=== PATIENT | male | born 1995 | race Caucasian/White ===

== ENCOUNTER 2025-04-04 19:30 | Inpatient (IN) | payer OTHER ==
[~2025-04-04] VITALS: Ht 175.3 cm; Wt 57.7 kg
[2025-04-04 22:05] LABS: PLATELET COUNT (AUTO) 229 K/uL (150-450); RED BLOOD CELL COUNT(AUTO) 4.27 MIL/uL (4.50-5.90); RED CELL DISTRIBUTION WIDTH 14.8 % (11.5-14.5); WHITE BLOOD COUNT (AUTO) 10.8 K/uL (4.5-11.0)
[2025-04-04 22:10] LABS: CALCIUM, TOTAL 9.4 mg/dL (8.8-10.5); CREATININE 0.78 mg/dL (0.60-1.30); GLOMERULAR FILTR. RATE CALC > 60 mL/min (>60); GLUCOSE,RANDOM 75 mg/dL (70-110); SODIUM SERUM 140 mmol/L (136-145); UREA NITROGEN, BLOOD 17 mg/dL (7-18)
[2025-04-04 23:30] LABS: COVID AG,FIA SOURCE NASAL SWAB
[2025-04-04 23:33] LABS: SARS-COV2 (COVID) ANTIGEN,FIA Negative (Negative)
[2025-04-05 04:00] VITALS: O2SAT 100
[2025-04-05] MEDS ORDERED: BENZOCAINE/MENTHOL [CEPACOL] LOZENGE PO PRN (07:15)
[2025-04-05] MEDS ORDERED: ALBUTEROL SULFATE HFA 90 MCG/PUFF 8 GM INHALER IH PRN (07:15)
[2025-04-05] MEDS ORDERED: ONDANSETRON 4 MG TABLET PO PRN (07:15)
[2025-04-05] MEDS ORDERED: DOCUSATE SODIUM 100 MG CAPSULE PO PRN (07:15)
[2025-04-05] MEDS ORDERED: MAG HYDROX/ALUMINUM HYD/SIMETH ES 30 ML SUSPENSION UDCUP PO PRN (07:15)
[2025-04-05] MEDS ORDERED: IBUPROFEN 600 MG TABLET PO PRN (07:15)
[2025-04-05] MEDS ORDERED: PETROLATUM,WHITE 28 GM JELLY TP PRN (07:15)
[2025-04-05] MEDS ORDERED: LOPERAMIDE HCL 2 MG CAPSULE PO PRN (07:15)
[2025-04-05] MEDS ORDERED: MAGNESIUM HYDROXIDE SUSPENSION 30 ML UDCUP PO PRN (07:15)
[2025-04-05] MEDS ORDERED: OMEPRAZOLE 20 MG CAPSULE PO PRN (07:15)
[2025-04-05] MEDS ORDERED: ACETAMINOPHEN 325 MG TABLET PO PRN (07:15)
[2025-04-05] MEDS ORDERED: BACITRACIN 28 GM OINTMENT TP PRN (07:15)
[2025-04-05 11:38] VITALS: BP 109/82; PULSE 89; RESP 15; TEMP 98.1; O2SAT 100
[2025-04-05] MEDS: GABAPENTIN 300 MG CAPSULE PO SCH (16:17)
[2025-04-05 20:28] VITALS: BP 99/50; PULSE 83; RESP 16; TEMP 97.2; O2SAT 98
[2025-04-06 08:18] VITALS: BP 116/74; PULSE 95; RESP 18; TEMP 97.5; O2SAT 100
[2025-04-06 08:33] LABS: PLATELET COUNT (AUTO) 261 K/uL (150-450); RED BLOOD CELL COUNT(AUTO) 4.01 MIL/uL (4.50-5.90); RED CELL DISTRIBUTION WIDTH 14.1 % (11.5-14.5); WHITE BLOOD COUNT (AUTO) 5.6 K/uL (4.5-11.0)
[2025-04-06 09:08] LABS: ALCOHOL, URINE DRUG SCREEN NEGATIVE (NEGATIVE); AMPHET/METH SCREEN,URINE NEGATIVE (NEGATIVE); BARBITURATE SCREEN, URINE NEGATIVE (NEGATIVE); CANNABINOID SCREEN,URINE POSITIVE (NEGATIVE); COCAINE SCREEN,URINE NEGATIVE (NEGATIVE); METHADONE SCREEN, URINE NEGATIVE (NEGATIVE)
[2025-04-06 09:17] LABS: ASPARTATE AMINOTRANSFERASE 34 U/L (15-37); CALCIUM, TOTAL 9.0 mg/dL (8.8-10.5); CHOL/HDL RATIO 2.5 (4.2-7.3); CREATININE 0.56 mg/dL (0.60-1.30); GLOMERULAR FILTR. RATE CALC > 60 mL/min (>60); GLUCOSE,RANDOM 99 mg/dL (70-110); LDL CHOL (CALC.) 114 mg/dL (0-130); SODIUM SERUM 139 mmol/L (136-145); TOTAL PROTEIN, SERUM 7.3 g/dL (6.4-8.2); UREA NITROGEN, BLOOD 10 mg/dL (7-18)
[2025-04-06 09:24] LABS: APPEARANCE,URINE CLEAR (CLEAR); GLUCOSE, URINE (UA) TRACE mg/dL (NEGATIVE); LEUKOCYTE ESTERASE ,URINE NEGATIVE (NEGATIVE); NITRATE,URINE NEGATIVE (NEGATIVE); OCCULT BLOOD,URINE NEGATIVE (NEGATIVE); PH,URINE DRUG SCREEN 6.0 (5.0-8.0); SPECIFIC GRAVITIY, URINE 1.036 (1.003-1.030)
[2025-04-06] MEDS: ZOLPIDEM TARTRATE 10 MG TABLET PO PRN (20:18)
[2025-04-06 20:26] VITALS: BP 108/62; PULSE 82; RESP 17; TEMP 97.8; O2SAT 99
[2025-04-07 06:07] LABS: HEPATITIS C AB (EIA) Non Reactive (Non Reactive)
[2025-04-07] MEDS: MULTIVITAMINS WITH MINERALS, THERAPEUTIC TABLET PO SCH (08:04)
[2025-04-07 08:05] VITALS: BP 127/84; PULSE 76; RESP 18; TEMP 97.9; O2SAT 95
[2025-04-07 20:18] VITALS: BP 124/89; PULSE 66; RESP 18; TEMP 98.4; O2SAT 99
[2025-04-08 08:12] VITALS: RESP 18
[2025-04-08 20:17] VITALS: BP 114/72; PULSE 84; RESP 18; TEMP 98
[2025-04-09 08:11] VITALS: BP 105/68; PULSE 94; RESP 16; TEMP 98.2; O2SAT 100
[2025-04-09 08:12] VITALS: BP 105/68; PULSE 94; RESP 16; TEMP 98.2; O2SAT 100
[2025-04-09 20:44] VITALS: BP 112/71; PULSE 82; RESP 17; TEMP 98.7; O2SAT 100
[2025-04-10 08:10] VITALS: BP 109/75; PULSE 93; RESP 16; TEMP 97.9; O2SAT 100
[2025-04-10] MEDS: HYDROCORTISONE 1% 30 GM OINTMENT TP SCH (09:00)
[2025-04-10] MEDS ORDERED: RISP-32 PO (11:05)
[2025-04-10] MEDS ORDERED: GABA-1181 PO (11:06)
== END 2025-04-10 13:30 | disposition home or self-care (01) | DRG 885 ==
LOC: EMS 19:30 → B3A 04-05 02:18
PROVIDERS: ADMIT Psychiatry & Neurology Psychiatry; ATTEND Psychiatry & Neurology Psychiatry
DX: F20.9 Schizophrenia, unspecified (principal); Z59.00 Homelessness unspecified; G40.909 Epilepsy, unspecified, not intractable, without status epilepticus; F41.9 Anxiety disorder, unspecified; G47.00 Insomnia, unspecified; S40.022A Contusion of left upper arm, initial encounter; F10.90 Alcohol use, unspecified, uncomplicated; Z20.822 Contact with and (suspected) exposure to COVID-19; Y90.0 Blood alcohol level of less than 20 mg/100 ml; S40.021A Contusion of right upper arm, initial encounter; W18.39XA Other fall on same level, initial encounter; Y93.02 Activity, running; Y92.89 Other specified places as the place of occurrence of the external cause; Y99.8 Other external cause status
CPT/HCPCS: 80048; 80053; 80061; 80307; 83036; 84436; 84443; 85025; 86803; 87340; G0480